=== PATIENT | male | born 1975 | race Two or more races ===

== ENCOUNTER 2024-09-15 15:00 | Emergency (ER) | payer SELFPAY ==
[2024-09-15 15:24] VITALS: PULSE 90; RESP 20; O2SAT 98
--- NOTE | 2024-09-15 15:54 | XR_ITS ---
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 Institutional dose reducing protocols were utilized. RADIATION DOSE: DLP 842 mGy-cm COMPARISON: None. FINDINGS: BRAIN: No acute intracranial hemorrhage, mass effect, or midline shift. DIAZ-WHITE DIFFERENTIATION: Preserved. EXTRA-AXIAL SPACES: No abnormal collection. SULCI: Normal. VENTRICLES: Normal. BASAL CISTERNS: Normal. VESSELS: No hyperdense vessel sign. DURAL VENOUS SINUSES: Symmetric attenuation. POSTERIOR FOSSA: Normal. MASTOID AIR CELLS: Clear. PARANASAL SINUSES: Moderate right maxillary sinus mucous retention cyst, partially visualized. ORBITS: Normal. BONES: Normal. SCALP: Normal. IMPRESSION: No acute intracranial findings.
--- NOTE | 2024-09-15 15:55 | PD.EDRME ---
Rapid Medical Screening Exam RME Arrival date/time: 09/15/24 15:00 48-year-old male presents to the emergency department today via EMS patient reports of generalized pain patient is intoxicated Chief Complaint: General Adult/Misc Complain
[2024-09-15 15:56] VITALS: BP 106/73; PULSE 90; RESP 18; TEMP 37.2; O2SAT 99
[2024-09-15 16:26] LABS: Basophils # (Auto) 0.1 Thou/mm3 (0.0-0.2); Basophils % (Auto) 1 % (0-2.5); Eosinophils # (Auto) 0.1 Thou/mm3 (0.0-0.5); Eosinophils % (Auto) 1 % (0-10); Hematocrit 43.4 % (41.0-53.0); Hemoglobin 16.1 g/dL (13.5-16.0); Immature Granulocytes % (Auto) 0 % (0-0); Immature Granulocytes Auto 0.02 Thou/mm3 (0.00-0.00); Lymphocytes # (Auto) 1.8 Thou/mm3 (1.0-4.8); Lymphocytes % (Auto) 23 % (10-50); Mean Corpuscular HGB Conc 37.1 g/dl (31.0-37.0); Mean Corpuscular Hemoglobin 30.7 pg (25.0-35.0); Mean Corpuscular Volume 83 fL (80-100); Monocytes # (Auto) 1.2 Thou/mm3 (0.0-0.8); Monocytes % (Auto) 15 % (0-12); Neutrophils # (Auto) 4.8 Thou/mm3 (1.8-7.7); Neutrophils % (Auto) 60 % (37-80); Nucleated Red Blood Cell % 0 /100 WBC (0); Platelet Count 127 Thou/mm3 (140-440); RDW Standard Deviation 39.3 fL (35.1-43.9); Red Blood Count 5.25 Miln/mm3 (4.50-5.90); White Blood Count 7.9 Thou/mm3 (3.8-10.6)
[2024-09-15 16:43] LABS: Alanine Aminotransferase 47 U/L (10-49); Albumin, Serum 4.5 gm/dL (3.5-5.0); Albumin/Globulin Ratio 1.5 (1.2-2.2); Alcohol, Blood Medical < 10.0 mg/dL (0-10.0); Alkaline Phosphatase 162 U/L (46-116); Anion Gap 10 (7-16); Aspartate Amino Transferase 118 U/L (0-34); BUN/Creatinine Ratio 18 Ratio (12-20); Bilirubin,Total 1.5 mg/dL (0.3-1.2); Blood Urea Nitrogen 20 mg/dL (9-23); Calcium 10.2 mg/dL (8.3-10.6); Calcium (Corrected) 10.2 mg/dL (8.5-10.1); Carbon Dioxide 24.1 mMol/L (20.0-31.0); Chloride 100 mMol/L (98-107); Creatinine (Component) 1.1 mg/dL (0.6-1.3); Globulin 3.1 gm/dL (2.3-3.5); Glucose 87 mg/dL (74-106); Osmolality,Calculated 269 (275-295); Potassium 4.7 mMol/L (3.4-5.1); Sodium 134 mMol/L (136-145); Total Protein 7.6 gm/dL (5.7-8.2); eGFR > 60 See Note
[2024-09-15 17:47] VITALS: BP 131/83; PULSE 85; RESP 20; TEMP 36.7; O2SAT 98
[2024-09-15 18:03] VITALS: BMI 21.2
[2024-09-15 18:07] LABS: Collection Type, Urine Clean Catch; Squamous Epithelial Cell,Urine 0 /hpf (0-5)
--- NOTE | 2024-09-15 18:13 | PC.NURSE ---
patient left ama through the ambulance bay with the IV intact. [facility] contacted and informed of the importance of IV removal.
--- NOTE | 2024-09-15 18:14 | PC.NURSE ---
This senior medical writer was called by a visitor stating pt had left from ambulance bay door went outside [facility] senior medical writer visually saw IV still in place told pt to return and he did not follow directions and continued to walk , [place] police notified pt left with IV in place and pt description given to PD
[2024-09-15 18:25] LABS: Amphetamine/Methamp Scrn,U Positive (Negative); Barbiturate Screen,Urine Negative (Negative); Benzodiazepines Screen,Urine Negative (Negative); Benzoylecgonine Screen, Ur Negative (Negative); Fentanyl Screen,Urine Negative (Negative); Opiate Screen,Urine Negative (Negative); THC Screen,Urine Negative (Negative)
[2024-09-15 18:26] LABS: Bilirubin,Urine Negative (Negative); Blood,Urine Negative (Negative); Clarity,Urine Clear (Clear/Hazy); Color,Urine Yellow (Lt Yel-Yel); Culture Indicated,Urine Not Indicated; Glucose, Urine Negative (Negative); Hyaline Casts,Urine 3 /hpf (0-1); Ketones,Urine 2+ (Negative); Leukocyte Esterase,Urine Negative (Negative); Nitrite,Urine Negative (Negative); PH,Urine 5.5 (5.0-7.0); Protein,Urine Trace (Neg - Trace); RBC,Urine 2 /hpf (0-3); WBC,Urine 3 /hpf (0-5)
== END 2024-09-15 18:16 | disposition left against medical advice (07) ==
PROVIDERS: Nurse Practitioner Primary Care; Emergency Provider Emergency Medicine
DX: R52 Pain, unspecified (principal); F10.129 Alcohol abuse with intoxication, unspecified; Z53.29 Procedure and treatment not carried out because of patient's decision for other reasons
CPT/HCPCS: 36415; 70450; 80053; 80307; 80320; 81001; 85025; 99281; G0480